=== PATIENT | male | born 1945 | race Caucasian/White ===

== ENCOUNTER 2017-01-28 16:16 | Emergency (ER) | payer OTHER ==
[~2017-01-28 16:16] MED LIST: ACTOS30 PO; ASA5GR PO; ASABAYER PO; ATIVAN2 MG PO; COREG6 PO; EDARBYCLOR 40-1 EACH PO; FLOMAX4 PO; GLUCOPHAGE1000 MG PO; HYZAAR 100/25 T1 TAB PO; JANUVIA50 PO; MICRO-K10 MEQ PO; MIRALAXPKT PO; SYN1 PO; SYN125 PO; ZOCOR80 MG PO
== END 2017-01-28 22:05 | disposition home or self-care (01) ==
LOC: ER 16:16
DX: S06.0X9A Concussion with loss of consciousness of unspecified duration, initial encounter (principal); S16.1XXA Strain of muscle, fascia and tendon at neck level, initial encounter; I10 Essential (primary) hypertension; E11.9 Type 2 diabetes mellitus without complications; Z87.891 Personal history of nicotine dependence; Z88.8 Allergy status to other drugs, medicaments and biological substances; Z79.82 Long term (current) use of aspirin; Z79.899 Other long term (current) drug therapy; V49.20XA Unspecified car occupant injured in collision with unspecified motor vehicles in nontraffic accident, initial encounter
CPT/HCPCS: 70450; 72125; 96372; 99284; J1885; J2930